=== PATIENT | female | born 1940 | race Caucasian/White ===

== ENCOUNTER → 2017-08-07 | Outpatient (CLI) | payer MEDICARE, OTHER ==
[~2017-08-07] MED LIST: ALEN70TA5 PO; ALLEGRA PO; ASPI-621 PO; ATOR-2 PO; CALCIUM+MAG+ZINC PO; CARB15DR EACHEYE; CHOL500015 PO; COLLAGEN PO; CYAN25009 PO; CYCL-259 PO; CYCL1DRO EACHEYE; DICL100G19 TP; FLUT9.9S NAS; GABA300C10 PO; GABA600T2 PO; HYDR-3245 PO; JOINT MOVEMENT PO; LISI1TAB3 PO; METO50TA82 PO; MULT-516 PO; OMEP40CA6 PO; POTA20TA89 PO; PROC10TA PO; ROPI0.5T2 PO; SANDOSTATIN IM; TURM1POW PO; UBID200C35 PO; VIT1CAPS11 PO; [UNRECOGNIZED DRUG - OTHER] PO
[2017-08-07 12:35] LABS: BASOPHILS # (AUTO) 0.02 x10^3/uL (0-0.1); BASOPHILS % (AUTO) 0 % (0-1); EOSINOPHILS # (AUTO) 0.14 x10^3/uL (0-0.4); EOSINOPHILS % (AUTO) 2 % (1-7); LYMPHOCYTES # (AUTO) 2.81 x10^3/uL (1-3.4); LYMPHOCYTES % (AUTO) 40 % (22-44); MD NO; MEAN CORPUSCULAR HEMOGLOBIN 33.8 pg (27.0-34.8); MEAN CORPUSCULAR HGB CONC 33.8 g/dL (32.4-35.8); MEAN CORPUSCULAR VOLUME 100.1 fL (80-100); MEAN PLATELET VOLUME 8.1 fL (7.4-10.4); MONOCYTES # (AUTO) 0.73 x10^3/uL (0.2-0.8); MONOCYTES % (AUTO) 10 % (2-9); NEUTROPHILS # (AUTO) 3.32 x10^3/uL (1.8-6.8); NEUTROPHILS % (AUTO) 47 % (42-75); PLATELET COUNT 183 x10^3/uL (130-400); RED BLOOD COUNT 3.89 x10^6/uL (3.82-5.3); RED CELL DISTRIBUTION WIDTH 13.1 % (9.6-15.2)
[2017-08-07 12:45] LABS: ALANINE AMINOTRANSFERASE 45 U/L (12-78); ANION GAP 5 mmol/L (5-15); CALCIUM 9.2 mg/dL (8.5-10.1); CHLORIDE 105 mmol/L (98-107); CREATININE 1.48 mg/dL (0.55-1.02)
[2017-08-07 12:47] LABS: ALKALINE PHOSPHATASE 110 U/L (45-117); BILIRUBIN,TOTAL 0.3 mg/dL (0.2-1.0); TOTAL PROTEIN 8.4 g/dL (6.4-8.2)
== END | disposition home or self-care (01) ==
LOC: STAR 11:08
PROVIDERS: ATTEND Obstetrics & Gynecology Female Pelvic Medicine and Reconstructive Surgery
DX: Z01.818 Encounter for other preprocedural examination (principal); N81.10 Cystocele, unspecified; K46.9 Unspecified abdominal hernia without obstruction or gangrene
CPT/HCPCS: 36415; 71020; 80053; 85025; 93005

== ENCOUNTER 2017-08-17 09:03 | Observation (INO) | payer MEDICARE, OTHER ==
[~2017-08-17] VITALS: Ht 149.9 cm; Wt 69.3 kg
[~2017-08-17 09:03] MED LIST changes: +BUPIVACAINE/PF 0.25% ONE; +EPINEPHRINE 1 MG/ML, 1ML ONE
[2017-08-17] MEDS ORDERED: OCTREOTIDE 500 MCG in SODIUM CHLORIDE 0.9% 249 ML IV ONE (09:30)
[2017-08-17] MEDS: LACTATED RINGERS 1,000 ML IV SCH ×3 (10:09→22:13)
[2017-08-17] MEDS ORDERED: FENTANYL PF 250 MCG/5ML ONE ×2 (10:13→12:54)
[2017-08-17] MEDS ORDERED: MIDAZOLAM 1 MG/ML, 2ML ONE (10:13)
[2017-08-17] MEDS ORDERED: SUCCINYLCHOLINE 20 MG/ML, 10ML ONE (10:14)
[2017-08-17] MEDS ORDERED: DEXAMETHASONE 4 MG/ML, 1ML ONE (10:14)
[2017-08-17] MEDS ORDERED: LIDOCAINE-MPF 2% ,5ML ONE (10:14)
[2017-08-17] MEDS ORDERED: NEOSTIGMINE 1 MG/ML, 10ML ONE (10:14)
[2017-08-17] MEDS ORDERED: CEFAZOLIN 1,000 MG ONE (10:14)
[2017-08-17] MEDS ORDERED: GLYCOPYRROLATE 0.2MG/1ML, 5ML ONE (10:14)
[2017-08-17] MEDS ORDERED: PROPOFOL 10 MG/ML, 20ML ONE (10:14)
[2017-08-17] MEDS ORDERED: ONDANSETRON 2MG/ML, 2ML ONE (10:14)
[2017-08-17] MEDS ORDERED: ROCURONIUM 10 MG/ML,10ML ONE (10:14)
[2017-08-17] MEDS ORDERED: THROMBIN 5,000 UNIT VIAL TP ONE ×2 (11:18→12:46)
[2017-08-17] MEDS ORDERED: FLUORESCEIN SODIUM 500 MG/5 ML ONE (11:18)
[2017-08-17] MEDS ORDERED: NEOMY/POLYMYXIN B GU IRR. 1 ML IRRIG ONE (11:19)
[2017-08-17] MEDS ORDERED: HYDROmorphone 1 MG/ML, 1ML IV PRN (12:30)
[2017-08-17] MEDS ORDERED: ALBUTEROL/IPRATROPIUM 2.5MG/0.5MG, 3 ML NPPB PRN (12:30)
[2017-08-17] MEDS ORDERED: METOCLOPRAMIDE 5 MG/ML, 2ML IV PRN (12:30)
[2017-08-17] MEDS ORDERED: hydrALAzine 20 MG/ML, 1ML IV PRN (12:30)
[2017-08-17] MEDS ORDERED: MEPERIDINE/PF 25MG/0.5ML IVPush PRN (12:30)
[2017-08-17] MEDS ORDERED: DIAZEPAM 5 MG/ML, 2ML IVPush PRN (12:30)
[2017-08-17] MEDS ORDERED: METOPROLOL 1 MG/ML, 5ML IV PRN (12:30)
[2017-08-17] MEDS ORDERED: FENTANYL PF 100 MCG/2ML IV PRN (12:30)
[2017-08-17] MEDS ORDERED: MIDAZOLAM 1 MG/ML, 2ML IV PRN (12:30)
[2017-08-17] MEDS ORDERED: ACETAMINOPHEN 325 MG TABLET PO PRN (12:30)
[2017-08-17] MEDS ORDERED: GABAPENTIN 300 MG CAPSULE PO ONE (12:30)
[2017-08-17] MEDS ORDERED: PROMETHAZINE 25 MG/ML, 1ML IV PRN (12:30)
[2017-08-17] MEDS ORDERED: LORazepam 2 MG/ML, 1ML IVPush PRN (12:30)
[2017-08-17] MEDS ORDERED: BUPIVACAINE/PF 0.25% INFIL ONE (12:40)
[2017-08-17] MEDS ORDERED: KETAMINE 10 MG/ML, 20ML ONE (12:54)
[2017-08-17] MEDS ORDERED: LIDOCAINE GEL 2%, 5ML ONE (12:56)
[2017-08-17] MEDS ORDERED: OCTREOTIDE LAR 20 MG IM ONE (13:00)
[2017-08-17] MEDS ORDERED: LABETALOL 5MG/ML, 20ML ONE (13:05)
[2017-08-17] MEDS ORDERED: HYDROmorphone 2 MG/ML, 1ML ONE (13:56)
[2017-08-17] MEDS ORDERED: PROMETHAZINE 25 MG SUPP PR ONE (14:30)
[2017-08-17] MEDS ORDERED: IBUPROFEN 600 MG TABLET PO PRN (14:30)
[2017-08-17] MEDS ORDERED: ACETAMINOPHEN 650 MG/20.3 ML UDC ONE (15:03)
[2017-08-17] MEDS ORDERED: OXYcodone 5 MG/5 ML ORAL.SOL UDC ONE (15:04)
[2017-08-17] MEDS ORDERED: FENTANYL PF 100 MCG/2ML ONE (15:04)
[2017-08-17] MEDS: OXYcodone 5 MG/5 ML ORAL.SOL UDC PO PRN (15:08)
[2017-08-17 20:31] VITALS: BP 145/88
[2017-08-17] MEDS: HYDROcodone/APAP 5/325 TABLET PO PRN ×2 (21:53→22:47)
[2017-08-17 23:50] VITALS: BP 144/93
[2017-08-18] MEDS ORDERED: DIPHENHYDRAMINE 25 MG CAPSULE PO PRN
[2017-08-18] MEDS: LACTATED RINGERS 1,000 ML IV SCH ×2 (02:24→06:13)
[2017-08-18 03:25] VITALS: BP 128/64
[2017-08-18] MEDS: HYDROcodone/APAP 5/325 TABLET PO PRN (03:43)
[2017-08-18] MEDS ORDERED: ARTIFICIAL TEARS OPHTH SOLN 15ML EACHEYE PRN (06:00)
[2017-08-18] MEDS ORDERED: ASPIRIN 81 MG TABLET EC PO SCH (06:00)
[2017-08-18] MEDS ORDERED: REC MC SCH (06:30)
[2017-08-18 07:09] VITALS: BP 109/65
[2017-08-18] MEDS ORDERED: OMEPRAZOLE 20 MG CAPSULE.DR PO SCH (07:30)
[2017-08-18] MEDS ORDERED: POTASSIUM CHLORIDE 20 MEQ TAB.ER.PRT PO SCH (09:00)
[2017-08-18] MEDS ORDERED: FLUTICASONE NASAL SPRAY 16GM NAS SCH (09:00)
[2017-08-18] MEDS ORDERED: CYANOCOBALAMIN 1,000 MCG TABLET PO SCH (09:00)
[2017-08-18] MEDS ORDERED: HYDROCHLOROTHIAZIDE 12.5 MG CAPSULE PO SCH (09:00)
[2017-08-18] MEDS ORDERED: HYDROcodone/APAP 10/325 MG TABLET PO SCH ×4 (09:00→21:00)
[2017-08-18] MEDS ORDERED: ATORVASTATIN 80 MG TABLET PO SCH (09:00)
[2017-08-18] MEDS ORDERED: GABAPENTIN 300 MG CAPSULE PO SCH ×2 (09:00→12:00)
[2017-08-18] MEDS ORDERED: LISINOPRIL 10 MG TABLET PO SCH (09:00)
[2017-08-18] MEDS ORDERED: MULTIVITAMIN 1 TABLET PO SCH (09:00)
[2017-08-18] MEDS ORDERED: CHOLECALCIFEROL 1,000 UNIT TABLET PO SCH (09:00)
[2017-08-18 10:25] VITALS: BP 112/68
[2017-08-18] MEDS ORDERED: CYCLOBENZAPRINE 10 MG TABLET PO SCH (16:30)
[2017-08-18] MEDS ORDERED: METOPROLOL TARTRATE 100 MG TABLET PO SCH (16:30)
[2017-08-18] MEDS ORDERED: LORATADINE 10 MG TABLET PO SCH (21:00)
[2017-08-23] MEDS ORDERED: ALENDRONATE 70 MG TABLET PO SCH (06:30)
[2017-09-07] MEDS ORDERED: OCTREOTIDE LAR 20 MG IM SCH (06:30)
== END 2017-08-18 11:32 | disposition home or self-care (01) ==
LOC: OUT 09:03 → 4NOR 19:47 → OUT 23:56 → 4NOR 23:57 → DCLOUNGE 08-18 11:29
PROVIDERS: ADMIT Obstetrics & Gynecology Female Pelvic Medicine and Reconstructive Surgery; ATTEND Obstetrics & Gynecology Female Pelvic Medicine and Reconstructive Surgery
DX: K46.9 Unspecified abdominal hernia without obstruction or gangrene (principal); N73.6 Female pelvic peritoneal adhesions (postinfective); E34.0 Carcinoid syndrome; N39.46 Mixed incontinence; N99.3 Prolapse of vaginal vault after hysterectomy
CPT/HCPCS: 57282; C1781; G0378; J0171; J0330; J0690; J1100; J1170; J2250; J2353; J2354; J2405; J2704; J2710; J3010; J3490; J7050; J7120; Q0163